=== PATIENT | female | born 1970 | race Two or more races ===

== ENCOUNTER 2022-10-23 07:49 | Emergency (ER) | payer OTHER ==
[~2022-10-23] VITALS: Ht 160 cm; Wt 85.7 kg
--- NOTE | 2022-10-23 08:00 | NUR ---
ANGÉLICARA88 FROM [facility] C/O "FACIAL/EYES PAIN "BURNING" ON/OFF X YESTERDAY.ANXIOUS THEATRICAL PERFORMER. ATTACHED TO MONITOR, DR ALEMAN AT BEDSIDE FOR EVAL.
--- NOTE | 2022-10-23 08:03 | NUR ---
AT BEDSIDE FOR EVAL
--- NOTE | 2022-10-23 09:35 | NUR ---
CHAIR CAR DRIVER AT BEDSIDE
--- NOTE | 2022-10-23 09:40 | NUR ---
PAYMENT POSTER AT BEDSIDE
--- NOTE | 2022-10-23 10:41 | NUR ---
SPOKE TO FACILITY, LEIDA FROM [facility] WILL BE HERE IN 15 MINUTES TO PICK HER UP.
--- NOTE | 2022-10-23 10:58 | NUR ---
"SW Consult: SW consult requested for a 52 year old patient that disoriented and got now knowledge where she resides. Patient brought to the hospital due to neck pain. Patient was asleep when the SW came in but was able to wake her up. Patient was oriented X1 (self). She was not cooperative with the travel writer while conducting the assessment. She was only able to say that she came from [facility] and provided the wrong address for the facility. A private residence is located at the address the patient provided. SW will look for the address for [facility]. DC Plan: Pt would want to return back to [facility] if the address is found. SUBSTANCE: Substance Abuse resources provided included: [facility] Substance Abuse Self-Helpline ([facility]) ; CRI -HELP [address] [facility]. [place] 913t01 ; [facility] [address] [facility] [address]56 ; [facility] [address]68 [facility] [address] ; [facility] 400 [facility] [id number] ; [facility] 6432 Zain Qu[address] [facility] [address] ; [facility] [place] 909 [facility] [id number] ; [facility] Substance Abuse Helpline([facility])-[facility] ; [facility] ; [facility]; Cri-Help [place]; I-ADA Inter Agency Drug Abuse Recovery [place]; [facility]; [facility]; [facility], [facility]. [place] [facility]; Alcoholics Anonymous -SFV; Cd-Qgoq-Yabdvrp ; Marijuana Anonymous -SFV; Narcotics Anonymous [email or web address].[email or web address]; HOMELESS: Shelters: Jared Wilson [place] Provider: [facility] [place] Address: [address], [address] # of Beds: 47 Population Served: [facility] 6 | [facility] Orly Cifuentes [place] Provider: Home at Last Address: [address], [address] # of Beds: 66 Population Served: [facility] Provider: First to Serve Address: [address] [facility], [address] # of Beds: 56 Population Served: [facility] Mikal [place] Provider: [facility] Address: [address] [place] [address], [address] # of Beds: 49 Population Served: [facility] 8 | [facility] Provider: First to Serve Address: [address] [facility], [address] # of Beds: 37 Population Served: [facility] Hygiene: [facility] [facility]: [address] [place] ; [place] [facility] [address] [facility] ; [facility] [address] [place] . Food Resources: [place] Food Pantry at [facility]- 3472 [facility]. [place]; Meet Each Need with Dignity ([facility]) [address] [place]; [facility] Food Pantry 7832 [facility] Creek[facility]; [facility] 0301 [facility]. Mental Health resources provided: [facility] [address] [facility], [place] [address] ; [facility] [address], [place] [address] ; [place] [facility]gent [facility] Center [address] [place] [address] ; [facility] [address] [place], [place] [address] Healthcare Clinics: [facility] [address] Zain Qu[address] [facility], [address] [place]. [place] ; [facility] [address] [facility] [address] [place] [address]; [facility] [address] [facility] [place] [address] 751) [phone] Counseling--Outpatient [facility] [address] [facility], [place] [address] (Specializes in in-depth psychotherapy for emotional distress: anxiety, depression, interpersonal conflicts, life transitions, childhood abuse) [facility] [address] [place] [address] (Assist with solving problem marital difficulties, separation & divorce, aging parents, & grief, chronic & terminal illness) [facility] [address] [place] [address] (Deal with loss & grief, anxiety, marital difficulties) Homebound/Mental Health Services [address], [address] [place] [address] (Provide in-home mental services to people who are incapable of leaving their homes) Organization for Needs of the Elderly Senior Service/Resource Center [address] [place] [address] [facility] [address] [facility] [place] [address] PSYCHIATRIC OUTPATIENT SERVICES [facility] Partial Hospitalization and Intensive Outpatient Program (Managed Care and [place] Only) [address] [address]. [facility] [id number] [facility] Partial Hospitalization and Outpatient Program [address] [place] [facility]. [address] [place] [address] [facility] [address] [address] [facility]. [address] [place] [address] [facility] Partial Hospitalization and Outpatient Program [address] [place], [place] [phone] Food Pantries [facility] [address] [place] [address] [place] Food [address] [place] [address] FISH of [place] [address] [place] [address] Loaves and Fishes II 7[address] [place] [address] [facility] Food Pantry - [address] [place] [address] MEND [address] [place] [address] [facility] [address] [place] [address] Rock of the [place] [address] [place] [address] [place] Hunger Relief of Hall [address] [place] [address] [facility] 8755 [place] [address] [facility] [address] [place] [address] M F 9am - 12 noon [phone] M Th 10am 2 pm Fri 10 am 12 noon [phone] Wed 1 3 pm Sat 1 3:30 pm [phone] M, W 10 am 12:30 pm [phone] M, F 7:30 11 am T, F 9 11 am [phone] MTh, 10am1:30pm Sun 9 am 12 noon [phone] Tues 45:30 pm [phone] Fri 8 10 am [phone] Wed 4 pm Sign up begins 12:30 pm [phone] Thurs 2 3 pm [phone] [facility] Food Guillaume Multiple Food Guillaume in the [place] on different days [email or web address] St. [facility] [address] [place] [address] [facility] [address] [place] [facility] [address] [place] [address] [facility] 5650 [place] [address] Se[facility] [address] [place] [address] 9am Noon 9am Noon 9am Noon 1pm - 5pm 8am 11am 7:30-10:30 am You have value. 9 am 12 noon [phone] Sunday 2 3 pm [phone] Dominick 6 8:30 pm [phone] Sunday: 4:30-6:30 Dominick: 3:30 5:00 pm Compliments of [address] [place], [place] | [phone] Take the next step towards hope. Food Pantries Food Pantries HOMELESS RESOURCE 2021 DIRECTORY Hot Showers Includes food and clothing resources 2 Parents with Children 1736 [facility] [phone] Amrita House [phone] Pedro Mcgee [phone] [facility] [place] [phone] Family [facility] [phone] [facility] [phone] ext 240 [facility] [phone] [facility] [phone] [facility] [place] [phone] [facility] [place] [phone] [facility] [place] [phone] The Midnight [place] [phone] ext 1650 New Life Beginnings [place] [phone] [facility] [place] [phone] Starting Over [phone] [facility] [place] [phone] Emergency/First Come, First Served 211 Helpline for [facility], Call 211 [facility] [place] [phone] [address] [place] [address] Single Men [facility] [place] [phone] [facility] [phone] [facility] [place] [phone] [place] [facility] [place] [facility] [phone] [place] [facility]. Vincent [facility] [phone] Starting Over [phone] The Midnight [place] [phone] ext 1650 Shah Rescue [place] [phone] [facility] [phone] Mens Recovery Programs [facility] [phone] [facility] [phone] The Midnight [place] [phone] ext 1650 [facility] [place] [phone] [facility] [place] [phone] [facility] [phone] Single Women A Way of Life [phone] Ascencia [place] [phone] [facility] [phone] [facility] [phone] [place] [facility] The Midnight [place] [phone] ext 1650 New Economics for Women [phone] Starting Over [phone] Sex Trafficking Children of the Night [facility] [phone] ext 0 [facility] [place] [phone] [employer] Project Hotline [phone] Women's Recovery Programs Leanne [facility] Mental Health Services [phone] [facility] [phone] [facility] [phone] Lightdinuba Intermediate [place] [phone] Hoving Home [place] [phone] [facility] [phone] Shah Rescue [place] [phone] Youth Only (11-28 years old) 1736 Family Crisis Center [phone] Children of the Night [place] [phone] ext 0 Youth Emerging Stronger ([place] Youth Network) [facility] [phone] [facility] [place] (18-24 years old) [phone] The [facility] Services (16-24 years old) [phone] Transition Age Youth Centers (16-28 years old) Intimate Partner/ Domestic Violence 1736 Family Crisis [place] [phone] [facility] [phone] Good [place] [phone] [facility] [phone] [facility] [phone] House of [place] [phone] [facility] [phone] [facility] [phone] Rust [place] [phone] [place] Rescue [place] [phone] [facility] [phone] [facility] Door [phone] Sojodov, The Peoples Concern [phone] [place] [phone] [facility] [phone] [facility] [phone] Domestic Abuse Response Team National hotline [phone] Women [facility]aternity [facility] [phone] [facility] [phone] [facility] [phone] [facility] [phone] [facility] Maternity Home [phone] Housing Service"
--- NOTE | 2022-10-23 11:06 | NUR ---
Patient discharged to home in stable condition. Written and verbal after care instructions given. Patient verbalizes understanding of instruction.
[2022-10-23 11:07] VITALS: BP 162/89; TEMP 98.4
[2022-10-27] MEDS ORDERED: KETO10TA2 PO (22:38)
== END 2022-10-23 11:08 | disposition home or self-care (01) ==
LOC: ER 07:51
DX: F41.9 Anxiety disorder, unspecified (principal); I10 Essential (primary) hypertension; Z88.8 Allergy status to other drugs, medicaments and biological substances